=== PATIENT | female | born 1960 | race Caucasian/White ===

== ENCOUNTER 2019-04-28 11:12 | Inpatient (IN) ==
--- NOTE | 2019-04-28 10:39 | Discharge Summary ---
<Reza Grayson M - Last Filed: 04/28/19 10:36> Date of Encounter: 04/28/19 - Discharge Diagnosis (1) Left shoulder pain Priority: Primary Status: Acute Qualifiers: Chronicity: unspecified Qualified Code(s): M25.512 - Pain in left shoulder - Hospital Course Hospital course: Ms. Kramer is a 59 year old female - Time Spent with Patient Total time spent providing and/or coordinating discharge services: - Discharge Medications Prescriptions: New Docusate [Colace] 100 mg PO BID 5 Days #10 capsule Ibuprofen [Motrin] 600 mg PO Q6HR PRN 7 Days #28 tab PRN Reason: Pain Acetaminophen [Pain Relief] 500 mg PO Q6H 7 Days #28 tablet OxyCODONE Immed Rel [Roxicodone 5 MG] 5 mg PO Q6HR PRN 5 Days #20 tablet PRN Reason: Severe Pain Continued Imipramine HCl [Tofranil] 25 mg PO HS BuPROPion SR (12 HR) [Wellbutrin SR] 150 mg PO DAILY Metoprolol Succinate [Toprol Xl] 25 mg PO QPM Lysine 1,000 mg PO DAILY Thyroid,Pork [[place] Thyroid] 60 mg PO QAM Black Cohosh 540 mg PO DAILY Ubidecarenone/Vit E Acetate [Co Q-10 100 mg Softgel] 100 mg PO DAILY Home Medications: Imipramine HCl [Tofranil] 25 mg PO HS 09/19/15 [History] BuPROPion SR (12 HR) [Wellbutrin SR] 150 mg PO DAILY 03/16/19 [History] Lysine 1,000 mg PO DAILY 03/16/19 [History] Metoprolol Succinate [Toprol Xl] 25 mg PO QPM 03/16/19 [History] Thyroid,Pork [[place] Thyroid] 60 mg PO QAM 03/16/19 [History] Acetaminophen [Pain Relief] 500 mg PO Q6H 7 Days #28 tablet 04/28/19 [Rx] Black Cohosh 540 mg PO DAILY 04/28/19 [History] Docusate [Colace] 100 mg PO BID 5 Days #10 capsule 04/28/19 [Rx] Ibuprofen [Motrin] 600 mg PO Q6HR PRN 7 Days #28 tab 04/28/19 [Rx] OxyCODONE Immed Rel [Roxicodone 5 MG] 5 mg PO Q6HR PRN 5 Days #20 tablet 04/28/19 [Rx] Ubidecarenone/Vit E Acetate [Co Q-10 100 mg Softgel] 100 mg PO DAILY 04/28/19 [History] Allergies/Adverse Reactions: Allergy/AdvReac Type Severity Reaction Status Date / Time BABY SHAMPOO Allergy Hives Uncoded 04/28/19 12:57 Primary care physician: Serge Joshua DO - Patient Status Disposition: Home, Self-Care Condition: Good - Discharge Instructions Follow Up With: Casper Joshua DO [Primary Care Provider] - Additional Instructions: Discharge Instructions: Total Shoulder Please call [facility] ([phone]), your Primary Care Physician, or report to the Emergency Room if you have any of the following symptoms: Nausea, vomiting, fever greater that 101.5, swelling, chest pain, shortness of breath, increased pain/redness/drainage/odor for your incision site, numbness/tingling, or any other concerning symptoms. ACTIVITY: Always keep your arm in the sling. Do not raise your arm away from your body. Do not use your arm to help with getting in or out of bed. No weight bearing permitted. Only perform those exercises given to you by your therapist. Incentive Spirometer 10 times an hour. MEDICATIONS: Upon discharge resume your home medications. Take all the medications as prescribed. Take a stool softener if taking narcotic pain medications. Stool softeners are only effective if you drink enough fluids. Drink 6-8 glass of water or fluids a day, unless this is not allowed for another health problem. Despite using stool softeners, if you haven't had a bowel movement in 3 days, please switch to a gentle laxative. Gentle laxatives are sold over the counter. You should have a bowel movement within 24 hours, if not call the office. You will be discharged from the hospital with a prescription for pain medication. You are encouraged to decrease the use of narcotic pain medication as tolerated. Should you require a refill, please call the office. [facility] prescribes narcotic pain medication for only 4-6 weeks after surgery. If you require pain medication beyond this time period, you may be referred to your Primary Care Physician or to the Pain Clinic for further evaluation. Plan ahead for refills on pain medication as many narcotics either need to be picked up at the office or mailed. It is best to call 48-72 hours in advance of needing a prescription refill so you don't run out of medication. To help control the post-operative pain, you may take NSAIDs (Aleve,Advil, Motrin, Ibuprofen, Naprosyn) or Tylenol as prescribed on the bottle in addition to the pain medication. WOUND CARE: Leave the dressing on for 7-10 days. You may change the dressing if it becomes saturated greater than 50%. Do not get the dressing wet at anytime. Wash your hands with antibacterial soap, rinse and dry prior to any wound care. If you have everette the visiting nurse or rehab facility can remove the stapes 10-14 days after surgery and place steri-strips across the wound. Leave the steri-strips in place until they fall off on their own. You may let water from the shower run on top of the steri-strips. If you do not have a visiting nurse or rehab facility, you will need to return to the office at 10-14 days for the everette to be removed. If you have itching or redness around the dressing call the office. FOLLOW-UP: Please follow up with your surgeon in the orthopedic clinic, as scheduled <China Teixeira - Last Filed: 05/01/19 17:17> Orders not resulted at time of discharge: Pending orders 04/28/19 14:20 Surgical Pathology [PTH] Routine Date of Encounter: 04/28/19 Time of Encounter: 17:00 - Discharge Diagnosis (1) Rotator cuff tear arthropathy of left shoulder Priority: Primary Status: Chronic (2) Status post total replacement of left shoulder Priority: Primary Status: Acute (3) PSVT (paroxysmal supraventricular tachycardia) Priority: Secondary Status: Chronic (4) Thyroid disorder Priority: Secondary Status: Chronic (5) MTHFR gene mutation Priority: Secondary Status: Chronic - Hospital Course Hospital course: Ms. Kramer is a 59 year old female POD#1 s/p Total Shoulder Replacment Reverse, left [Left shoulder cuff tear arthropathy] 04/28/19 The patient's postoperative course was uneventful. Progressed from intravenous analgesic needs to oral analgesic needs only. Remained neurovascularly intact and mobilized satisfactorily. All radiographic studies were satisfactory. Patient course and disposition was followed by Dr. Spears. Patient seen by Dr. Spears as discharging physician on this day (04/29/19). Patient is discharged with plan for rehabilitation and outpatient orthopedic follow up has been arranged. - Time Spent with Patient Total time spent providing and/or coordinating discharge services: Date of admission: 04/28/19 15:29 Primary care physician: Serge Joshua DO Consults: 04/28/19 15:31 Consult to Occupational Therapy [CONS] Routine Comment: post shoulder surgery Reason for Consult: post shoulder surgery Does patient have active BEDREST order?: No Is patient medically & hemodynamically stable?: Yes Consult to [facility] [CONS] Routine Reason for SW Consult: shoulder surgery RT Post Op Consult [CONS] Routine Discharging clinician: Kashif Spears Anticipated date of discharge: 04/29/19 - VTE Documentation of Mechanical Device: Venous foot pump, device - Impressions ITS Impressions Shoulder X-Ray 04/28/19 01:00 IMPRESSION: 1. Status post reverse total shoulder arthroplasty with expected postsurgical changes. D/ / 04/28/2019 16:44:51 Makeda Kelly MD / [email or web address] Interpreting Provider: Makeda Kelly MD - Patient Status Functional capacity at discharge: independent ambulation Overall status at discharge: patient is progressing back to baseline - Diet and Activity Activity: as per physical therapy Diet: advance to your usual diet
--- NOTE | 2019-04-28 11:23 | History & Physical Report ---
Date of Encounter: 04/28/19 Time of Encounter: 11:22 24 Hour HP Update - Instructions Instructions: If the History and Physical is less than 30 days old and was completed prior to A.M. admission and or procedure and has NOT been updated on calendar day of procedure please complete this update prior to performing procedure. - Update Patient reports changes in Medical Condition: No Changes in examination, assessment, or condition: No Changes in Medication: No Preop tests/diagnostics Reviewed: Yes Surgery Remains Indicated: Yes Consent for Planned Operative Procedure(s) Verified: Yes - Pre-Operative Checklist Preoperative Checklist Indicated: No Prophylactic Antibiotic Ordered: Yes Is VTE Prophylaxis Indicated?: Yes
--- NOTE | 2019-04-28 11:30 | Anesthesia Evaluation PreOp ---
Date of Encounter: 04/28/19 Time of Encounter: 11:23 - Past History Planned Operation: LEFT TSA Cardiac History: Arrhythmia (PSVT, ON METOPROLOL) Pulmonary History: Denies Any Significant HX CHEF CONCIERGE History: Denies Any Significant HX Other Medical History: Thyroid, Other (MTHFR (Methylenetetrahydrofolate) blood clotting disorder) Anesthesia History: No Prior Anesthetic Complications, Past Anesthesia Alcohol Use: none Drug use: none Medications and Allergies Imipramine HCl [Tofranil] 25 mg PO HS 09/19/15 [History] Ubidecarenone [Co Q-10] 200 mg PO DAILY 09/19/15 [History] Black Cohosh 1 cap PO DAILY 03/16/19 [History] BuPROPion SR (12 HR) [Wellbutrin SR] 1 tab PO DAILY 03/16/19 [History] Clindamycin [Cleocin] 150 mg PO Q6HR #7 capsule 03/16/19 [Rx] Ibuprofen [Motrin] 600 mg PO Q8HR #20 tab 03/16/19 [Rx] Lysine 1 tab PO DAILY 03/16/19 [History] Metoprolol Succinate [Toprol Xl] 1 tab PO DAILY 03/16/19 [History] Naproxen [Naprosyn] 1 tab PO Q12H PRN 03/16/19 [History] Ondansetron [Zofran ODT] 1 tab PO TID PRN 03/16/19 [History] OxyCODONE Immed Rel [Roxicodone 5 MG] 5 mg PO Q6HR PRN 5 Days #20 tablet 03/16/19 [Rx] Thyroid,Pork [[place] Thyroid] 1 tab PO DAILY 03/16/19 [History] Acetaminophen [Pain Relief] 500 mg PO Q6H 7 Days #28 tablet 04/28/19 [Rx] Docusate [Colace] 100 mg PO BID 5 Days #10 capsule 04/28/19 [Rx] Ibuprofen [Motrin] 600 mg PO Q6HR PRN 7 Days #28 tab 04/28/19 [Rx] OxyCODONE Immed Rel [Roxicodone 5 MG] 5 mg PO Q6HR PRN 5 Days #20 tablet 04/28/19 [Rx] Allergy/AdvReac Type Severity Reaction Status Date / Time No Known Allergies Allergy Verified 04/18/19 08:34 - Meds/Allergy Pre-op Review Medications Reviewed: Yes Allergies Reviewed: Yes Anesthesia Exam REVIEWED Weight: 85 KG - BMI 28 NPO (# of Hours): 8 - HEENT Mallampati: III Teeth: Normal - Cardiac Rhythm: Regular - Pulmonary Breath Sounds: bilateral Clear Anesthesia Assess/Plan ASA Score: 2 Anesthetic Plan: General, Regional Nerve Block Monitoring Plan: Standard Monitors Recovery Plan: PACU
[2019-04-28] MEDS ORDERED: traMADol 50 MG TABLET PO ONE (11:34)
[2019-04-28] MEDS ORDERED: Ondansetron 4 MG/2 ML VIAL IVP ONE (11:35)
[2019-04-28] MEDS ORDERED: *HR* OxyCODONE Immed Rel 5 MG TABLET PO PRN ×2 (11:35→15:31)
[2019-04-28] MEDS ORDERED: *HR* Meperidine 25 MG/ML SYRINGE IVP PRN (11:35)
[2019-04-28] MEDS ORDERED: Ketorolac 30 MG/ML VIAL IVP ONE (11:35)
[2019-04-28] MEDS ORDERED: Ringers Solution, Lactated 1,000 ML IVC SCH ×2 (11:45→15:31)
[2019-04-28] MEDS ORDERED: Ethanol\\Acetic Acid\\Na Ace\\Ben 1,000 ML IRRIG.SOLN IR ONE (12:09)
[2019-04-28] MEDS ORDERED: *HR* Midazolam HCl 2 MG/2 ML VIAL ONE (12:22)
[2019-04-28] MEDS ORDERED: ROPIVACAINE/PF/NS 0.25% 1 EACH SYRINGE INTRAART ONE (12:23)
[2019-04-28] MEDS ORDERED: Ropivacaine/PF 0.5% 30 ML VIAL ONE (12:23)
[2019-04-28] MEDS ORDERED: *HR* FentaNYL (PF) 100 MCG/2 ML VIAL ONE (12:23)
[2019-04-28] MEDS ORDERED: *HR* Propofol 200 MG/20 ML VIAL IVP ONE ×2 (12:25→13:26)
[2019-04-28] MEDS ORDERED: EPHEDrine 50 MG/ML VIAL ONE (12:25)
[2019-04-28] MEDS ORDERED: Lidocaine HCL 4 ML Topical Solution (Laryng-O-Jet Kit Sterile Pak) TP ONE (12:30)
[2019-04-28] MEDS ORDERED: Ondansetron 4 MG/2 ML VIAL ONE (12:30)
[2019-04-28] MEDS ORDERED: *HR* Succinylcholine 200 MG/10 ML VIAL IVP ONE (12:30)
[2019-04-28] MEDS ORDERED: Lidocaine -MPF 2% 2 ML VIAL ONE (12:30)
--- NOTE | 2019-04-28 12:57 | Anesthesia Procedures ---
Date of Encounter: 04/28/19 Time of Encounter: 12:40 Procedures: Anesthesia - Nerve Block Procedure Date: 04/28/19 Time: 12:40 Allergies/Adv Reactions: Allergies Allergy/AdvReac Type Severity Reaction Status Date / Time No Known Allergies Allergy Verified 04/18/19 08:34 Pre-op Diagnosis: Left Shoulder Arthropathy Surgical Procedure: Left Reverse Total Shoulder Arthropasty Correct side: Left Blood Thinner: No Monitor Applied: EKG, BP, Pulse Oximetry Supplemental Oxygen via Nasal Cannula (L/min): 2 Sedation: Versed (mg): 2 Sedation: Fentanyl (mcg): 100 Indication: Post Op Analgesia Pre-op Neuro Deficits: No Block Type: Supraclavicular, Other (ICB and SCP blocks as well) Catheter placed: No Sterile Technique: Yes Ultrasound used: Yes Anatomy identified: Yes Visual spread of Local: Yes Neuro Stimulation: Yes Nerve Stimulator Range: 0.2 - 0.4 mA Blood on Needle Aspiration: No Smooth Injection of Local: Yes Pain with Injection of Local: No Prep: Chlorhexadine Needle: 22 x 50 mm Stimuplex Local: Ropivacaine (25 ml of 0.5% Ropivacaine with 8mg Decadron used for Supraclavicular Block; 0.25% Ropivacaine used for ICB and SCP Blocks: 6ml each block (12ml total for both)) Volume (cc): 37ml Number of Attempts: 1 Complications: None/effective block Vitals: Vital Signs/O2 Sat/Glucose, Most Recent Temp Pulse Resp BP Pulse Ox 98.0 F 59 18 102/63 100 04/28/19 12:01 04/28/19 12:53 04/28/19 12:01 04/28/19 12:53 04/28/19 12:53
[2019-04-28] MEDS ORDERED: Acetaminophen IV 1,000 MG/100 ML INFUS..BTL ONE (13:11)
[2019-04-28] MEDS ORDERED: *HR* PHENYLEPHRINE 1,000 MCG/10 ML SYRINGE IVP ONE ×2 (13:25→14:05)
[2019-04-28] MEDS ORDERED: *HR* HYDROMORPHONE 2 MG/ML VIAL ONE (13:40)
--- NOTE | 2019-04-28 14:12 | Orthopedic Operative Note ---
Date of procedure: 04/28/19 Pre-op diagnosis: Left shoulder cuff tear arthropathy Post-op diagnosis: same Procedure: Procedure: Total Shoulder Replacment Reverse, left Estimated blood loss: 50 cc Hardware: Metal and polyethylene replacement: Arthrex 24, +4 , 25 mm post glenoid baseplate, 4 locking 5.5 screw, 36/4 glenosphere, 9 [place] humeral stem, poly insert 3 Exam Under anesthesia: Full motion no instability Procedural Notes: Grade 4 arthritic changes humeral head glenoid socket rotator cuff tear Operative procedure: The patient was brought to the operating room and placed on the operating room table. After general anesthesia was administered the operative shoulder was examined. Findings were noted. The patient was placed in the modified beachchair position. All pressure points were padded appropriately. And the head was stabilized in the neutral position. The operative extremity was prepped and draped in the sterile surgical fashion. The patient received IV antibiotics prior to skin incision. A standard deltopectoral approach was made to the operative shoulder. Incision was made to the skin and subcutaneous tissue,hemo stasis was obtained with Bovie cautery. Using careful blunt dissection the cephalic vein was identified and mobilized medially. The deltopectoral interval was developed and the clavipectoral fascia was incised. The subscap was released off the lesser tuberosity and tagged with #2 FiberWire suture subscap was irreparable. The humerus was dislocated patient noted to have tear supraspinatus tendon, and the humeral cut was made along the anatomic neck. Patient noted to have grade 4 arthritic changes humeral head and glenoid socket Anterior and posterior Bankart retractors were placed to expose the glenoid. The glenoid guide was seated and the centering hole was made. It was reamed with the appropriate reamer. The baseplate was seated and secured with 4 locking 5.5 screw. The baseplate was irrigated and dried and the Glenosphere was seated and secured with the Power taper. The Power taper was tested and found to be secure, glenosphere fixation was secondarily secured with the central screw. The humerus was redislocated and prepared with the diaphyseal reamers, followed by a broaching process up to the appropriate size 9 [place] in the patient's anatomic version. The metaphyseal reamer was then utilized. Trial reduction found the shoulder to be relocatable. Trial components were removed and the A pex stem was impacted in place in the patient's anatomic version. Trial reduction found the shoulder to be relocatable and stable with the appropriate 3. Trial component was removed and the real implant was seated and secured the shoulder was reduced. The shoulder had excellent motion and excellent stability and no evidence of dislocation. The deep tissue was irrigated with pulse irrigation. The PA close the shoulder. The deltopectoral interval was closed with a running #1 PDS suture, subcutaneous tissue was irrigated and closed with 0 PDS suture, the skin was closed with Dermabond. The patient was placed in a sterile dressing, abduction brace and extubated. The patient was then transferred to the recovery room in stable condition. Anesthesia: GETA Surgeon: Kashif Spears Was there an magistrate assistant present: Yes Pie Topper: Reza Grayson Estimated blood loss (cc): 50 Condition: stable Disposition: PACU
[2019-04-28] MEDS: *HR* HYDROmorphone (PF) 1 MG/ML SYRINGE IVP PRN ×2 (14:35→14:54)
[2019-04-28] MEDS: *HR* Promethazine 25 MG/ML VIAL IVP PRN ×2 (14:55→15:16)
[2019-04-28 14:59] LABS: Hematocrit 41.9 % (35.3-44.9); Hemoglobin 13.3 g/dL (11.5-15.4)
--- NOTE | 2019-04-28 15:20 | Anesthesia Evaluation Post Op ---
Date of Encounter: 04/28/19 Time of Encounter: 15:19 - Discharge PostOp Status: Transfer Patient to floor (Patient's vital signs have been reviewed. Patient is stable postoperatively and has adequately recovered from anesthesia. Patient is determined to have stable airway patency and respiratory function including respiratory rate and oxygen saturation. Patient has a stable heart rate, blood pressure and adequate hydration. Patients mental status is acceptable. Patients temperature is appropriate. Pain and nausea are adequately controlled)
[2019-04-28] MEDS ORDERED: Temazepam 15 MG CAPSULE PO PRN (15:31)
[2019-04-28] MEDS ORDERED: *HR* OxyCODONE/APAP 5/325 TABLET PO PRN (15:31)
[2019-04-28] MEDS ORDERED: Ondansetron 4 MG/2 ML VIAL IVP PRN (15:31)
[2019-04-28] MEDS ORDERED: MOM Conc 10 ML UD.LIQ PO PRN (15:31)
[2019-04-28] MEDS ORDERED: traMADol 50 MG TABLET PO PRN (15:31)
[2019-04-28] MEDS ORDERED: Sennosides 8.6 MG TABLET PO PRN (15:31)
[2019-04-28] MEDS: *HR* Enoxaparin 30 MG/0.3 ML SYRINGE SQ SCH (17:11)
[2019-04-28] MEDS ORDERED: *HR* Enoxaparin 30 MG/0.3 ML SYRINGE SQ SCH (18:00)
[2019-04-29 03:13] LABS: Hematocrit 41.2 % (35.3-44.9); Hemoglobin 13.5 g/dL (11.5-15.4)
[2019-04-29 03:28] LABS: BUN/Creatinine Ratio 18 (6-26); Blood Urea Nitrogen 12 mg/dL (6-20); Calcium 8.3 mg/dL (8.6-10.3); Carbon Dioxide 22 mEq/L (23-29); Chloride 108 mEq/L (98-107); Glucose 133 mg/dL (70-105); Osmolality,Calculated 288 (280-300); Potassium 4.3 mEq/L (3.5-5.1); Sodium 138 mEq/L (136-145); eGFR For African Americans > 60 (> 60); eGFR For Non-African Americans > 60 (> 60)
[2019-04-29] MEDS: *HR* Enoxaparin 30 MG/0.3 ML SYRINGE SQ SCH (06:04)
[2019-04-29 07:10] VITALS: BP 121/75
[2019-04-29] MEDS ORDERED: BuPROPion SR (12 HR) 150 MG TABLET PO SCH (09:00)
[2019-04-29] MEDS ORDERED: LYSINE PO SCH (09:00)
[2019-04-29] MEDS ORDERED: Metoprolol XL (24 HR) Succ 25 MG TAB.ER.24H PO SCH (09:00)
[2019-04-29] MEDS ORDERED: Thyroid (Amour) 30 MG TABLET PO SCH (09:00)
== END 2019-04-29 11:15 | disposition home or self-care (01) | DRG 483 ==
LOC: SAMDAY 11:12 → 3NENU 15:29
PROVIDERS: ADMIT Orthopaedic Surgery; ATTEND Orthopaedic Surgery